=== PATIENT | female | born 2000 ===

== ENCOUNTER 2022-09-06 15:14 | Emergency (ER) | payer OTHER ==
[~2022-09-06] VITALS: Ht 165.1 cm; Wt 54.4 kg
[2022-09-06] MEDS ORDERED: LIDOCAINE VISCUS 2% 15 ML UDC MM ONE (16:00)
[2022-09-06] MEDS ORDERED: MAG HYDROX/AL HYDROX/SIMETH 30 ML LIQUID UDC PO ONE (16:00)
[2022-09-06] MEDS ORDERED: LIDOCAINE VISCUS 2% 15 ML UDC ONE (16:05)
[2022-09-06] MEDS ORDERED: MAG HYDROX/AL HYDROX/SIMETH 30 ML LIQUID UDC ONE (16:05)
[2022-09-06 16:15] LABS: HEMATOCRIT 43.5 % (31.2-41.9); MEAN CORPUSCULAR VOLUME 89.7 fL (75.5-95.3); PLATELET COUNT (AUTO) 276 K/uL (179-408)
[2022-09-06 16:25] LABS: BILIRUBIN,DIRECT 0.2 mg/dL (0.0-0.2); BILIRUBIN,TOTAL 0.5 mg/dL (0.2-1.0); CREATININE 0.7 mg/dL (0.6-1.3); POTASSIUM 3.7 mmol/L (3.5-5.1)
[2022-09-06] MEDS ORDERED: OMEP20TA5 PO (16:42)
--- NOTE | 2022-09-06 16:50 | NUR ---
Patient discharged to home in stable condition. Written and verbal after care instructions given. Patient verbalizes understanding of instructions. Stressed follow up or return to ER for worsening s/s.
== END 2022-09-06 17:06 | disposition home or self-care (01) ==
LOC: ER 15:20
DX: R10.10 Upper abdominal pain, unspecified (principal)
CPT/HCPCS: 36415; 83690; 85025; A4663